=== PATIENT | female | born 1985 | race Two or more races ===

== ENCOUNTER 2025-02-06 13:03 | Emergency (ER) | payer OTHER ==
[2025-02-06 13:11] VITALS: BP 128/79; PULSE 82; RESP 18; TEMP 98.8; BMI 37.2
[2025-02-06] MEDS: DIPHTH,PERTUSS(ACELL),TET 0.5 ML DISP.SYRIN IM ONE (13:41)
[2025-02-06 13:47] LABS: ABSOLUTE IMMATURE GRANULOCYTES 0.01 x10^3/uL (0.0-0.031); BASOPHILS # 0.02 x10^3/uL (0.01-0.08); EOSINOPHILS # 0.11 x10^3/uL (0.04-0.36); HEMATOCRIT 44.1 % (34.1-44.9); HEMOGLOBIN 14.1 g/dL (11.2-15.7); MEAN CELL VOLUME 87.5 fl (79.4-94.8); MEAN PLT VOLUME 9.8 fl (9.4-12.3); MONOCYTE # 0.46 x10^3/uL (0.24-0.86); MONOCYTE % 8.2 % (4.7-12.5); PLATELET COUNT 288 x10^3/uL (182-369)
[2025-02-06 14:10] LABS: ALBUMIN 3.7 g/dl (3.4-5.0); BLOOD UREA NITROGEN 9.4 mg/dL (7-18); CALCIUM 9.3 mg/dL (8.5-10.1)
[2025-02-06 14:15] LABS: BILIRUBIN,TOTAL 0.4 mg/dL (0.2-1); TOT PROT 8.4 g/dl (6.4-8.2)
[2025-02-06 14:25] LABS: CREATININE 0.8 mg/dL (0.55-1.3)
[2025-02-06 15:16] LABS: HCV DIAGNOSTIC IN-HOUSE W/RFLX NON-REACTIVE (NONREACTIVE); HIV INTERPRETATION NEGATIVE (NEGATIVE)
== END 2025-02-06 14:03 | disposition home or self-care (01) ==
LOC: JERFT 13:03
DX: S61.032A Puncture wound without foreign body of left thumb without damage to nail, initial encounter (principal); W22.8XXA Striking against or struck by other objects, initial encounter
CPT/HCPCS: 36415; 80053; 85025; 86704; 86803; 87340; 87389; 87517; 99283-25